=== PATIENT | male | born 1960 | race American Indian/Alaskan Native ===

== ENCOUNTER 2021-08-22 14:27 | Emergency (ER) | payer MEDICARE ==
[2021-08-22 14:36] VITALS: BP 123/71
--- NOTE | 2021-08-22 14:49 | Emergency Department Report ---
- General Chief Complaint: Upper Respiratory Infection Stated Complaint: COVID LIKE SYMPTOMS Time Seen by Provider: 08/22/21 14:38 Source: patient Mode of arrival: Ambulatory Limitations: No Limitations - History of Present Illness Initial Comments: This 61-year-old male presents emergency department chief complaint of cough, congestion, generalized body aches and fever over the past 7 days. He is unsure of any sick contacts. He has been taking Tylenol for symptoms which has been helping. He denies any associated chest pain, shortness of breath, nausea,, diarrhea, lower extremity edema, weakness or any other associated symptoms. - Related Data Previous Rx's Medication Instructions Recorded Last Taken Type Azithromycin [Zithromax Z-FAIZA] 0 mg PO DAILY #1 pack 08/22/21 Unknown Rx Benzonatate [Tessalon Perles] 100 mg PO Q8HR #30 capsule 08/22/21 Unknown Rx Dexamethasone [Decadron] 6 mg PO DAILY #7 tablet 08/22/21 Unknown Rx Allergies Allergy/AdvReac Type Severity Reaction Status Date / Time Penicillins Allergy Rash Verified 08/22/21 14:36 ED Review of Systems ROS: Stated complaint: COVID LIKE SYMPTOMS Other details as noted in HPI Comment: All other systems reviewed and negative Constitutional: chills, fever Eyes: denies: eye pain, eye discharge, vision change ENT: congestion. denies: ear pain, throat pain Respiratory: denies: cough, shortness of breath, wheezing Cardiovascular: denies: chest pain, palpitations Endocrine: no symptoms reported Gastrointestinal: denies: abdominal pain, nausea, diarrhea Genitourinary: denies: urgency, dysuria Musculoskeletal: myalgia. denies: back pain, joint swelling, arthralgia Skin: denies: rash, lesions Neurological: denies: headache, weakness, paresthesias Psychiatric: denies: anxiety, depression Hematological/Lymphatic: denies: easy bleeding, easy bruising ED Past Medical Hx - Medications Home Medications: Home Medications Medication Instructions Recorded Confirmed Last Taken Type Azithromycin [Zithromax Z-FAIZA] 0 mg PO DAILY #1 pack 08/22/21 Unknown Rx Benzonatate [Tessalon Perles] 100 mg PO Q8HR #30 capsule 08/22/21 Unknown Rx Dexamethasone [Decadron] 6 mg PO DAILY #7 tablet 08/22/21 Unknown Rx ED Physical Exam - General Limitations: No Limitations General appearance: alert, in no apparent distress - Head Head exam: Present: atraumatic, normocephalic - Eye Eye exam: Present: normal appearance, PERRL, EOMI Pupils: Present: normal accommodation - ENT ENT exam: Present: normal exam, mucous membranes moist - Neck Neck exam: Present: normal inspection, full ROM. Absent: tenderness, meningismus - Respiratory Respiratory exam: Present: normal lung sounds bilaterally. Absent: respiratory distress - Cardiovascular Cardiovascular Exam: Present: regular rate, normal rhythm, normal heart sounds. Absent: systolic murmur, diastolic murmur, rubs, gallop - GI/Abdominal GI/Abdominal exam: Present: soft, normal bowel sounds - Rectal Rectal exam: Present: deferred - Extremities Exam Extremities exam: Present: normal inspection, full ROM, normal capillary refill. Absent: tenderness, calf tenderness (No posterior calf tenderness, negative Homans' sign bilaterally.) - Back Exam Back exam: Present: normal inspection, full ROM. Absent: tenderness, CVA tenderness (R), CVA tenderness (L) - Neurological Exam Neurological exam: Present: alert, oriented X3, normal gait - Psychiatric Psychiatric exam: Present: normal affect, normal mood - Skin Skin exam: Present: warm, dry, intact, normal color. Absent: rash ED Course Vital Signs 08/22/21 08/22/21 08/22/21 14:33 16:20 16:21 Temperature 100.2 F H Pulse Rate 93 H 80 Respiratory 20 20 Rate Blood Pressure 123/71 [Left] O2 Sat by Pulse 93 86 98 Oximetry - Reevaluation(s) Reevaluation #1: 08/22/21 16:11 The patient's initial O2 saturation was 93% on room air. Asked the RN to ambulate the patient with pulse oximetry and he dropped into the mid 80s. I discussed this with the patient and informed him that this was meeting criteria for inpatient admission for what I suspect is COVID-19 and the patient stated he did not want to stay in the hospital. I educated him that this could be potentially fatal or cause endorgan damage such as a hypoxic renal injury which could result in dialysis, or other permanent disability. He verbalized understanding and stated he would prefer to go home. He did agree to undergo chest x-ray and lab work which I will reevaluate with him with the results Reevaluation #2: 08/22/21 16:40 On reevaluation the patient is requiring 3 L of oxygen via nasal cannula. He is competent speaking complete sentences. He does not any increased work of breathing. I discussed with the patient at length at the bedside our recommendation to admit him to the hospital due to his acute respiratory failure with hypoxia however the patient politely declined saying he has a phobia of hospitals and would rather be treated at home. I told him that he would have to sign out AGAINST MEDICAL ADVICE. He is competent. He is alert and oriented x3. He has decision-making capacity and understands that if his symptoms worsen he may have a permanent irreversible condition that could be potentially fatal. He understood that at any point if he decided he wanted to return to the hospital he could return and we will be more than happy to see and treat him. At this time I will sign the patient out AGAINST MEDICAL ADVICE however I will still send him home with short course of antibiotics, steroids and cough medicine to hopefully have the best outcome for him. Patient verbalized underst anding of the need for admission. 08/22/21 16:41 ED Medical Decision Making - Lab Data Result diagrams: 08/22/21 15:59 08/22/21 15:59 Lab Results 08/22/21 08/22/21 Range/Units 15:59 15:59 WBC 8.0 (4.5-11.0) K/mm3 RBC 5.18 H (3.65-5.03) M/mm3 Hgb 14.8 (11.8-15.2) gm/dl Hct 45.8 H (35.5-45.6) % MCV 89 (84-94) fl MCH 29 (28-32) pg MCHC 32 (32-34) % RDW 13.8 (13.2-15.2) % Plt Count 197 (140-440) K/mm3 Lymph % (Auto) 16.8 (13.4-35.0) % [place] % (Auto) 12.5 H (0.0-7.3) % Eos % (Auto) 0.2 (0.0-4.3) % Baso % (Auto) 0.4 (0.0-1.8) % Lymph # (Auto) 1.4 (1.2-5.4) K/mm3 [place] # (Auto) 1.0 H (0.0-0.8) K/mm3 Eos # (Auto) 0.0 (0.0-0.4) K/mm3 Baso # (Auto) 0.0 (0.0-0.1) K/mm3 Seg Neutrophils % 70.1 H (40.0-70.0) % Seg Neutrophils # 5.6 (1.8-7.7) K/mm3 Sodium 135 L (137-145) mmol/L Potassium 4.7 (3.6-5.0) mmol/L Chloride 93.9 L (98-107) mmol/L Carbon Dioxide 26 (22-30) mmol/L Anion Gap 20 mmol/L BUN 17 (9-20) mg/dL Creatinine 1.2 (0.8-1.3) mg/dL Estimated GFR > 60 ml/min BUN/Creatinine Ratio 14 % Glucose 116 H (75-100) mg/dL Calcium 9.4 (8.4-10.2) mg/dL Total Bilirubin 0.50 (0.1-1.2) mg/dL AST 30 (5-40) units/L ALT 27 (7-56) units/L Alkaline Phosphatase 63 (35-129) units/L Lactate Dehydrogenase 292 H (91-180) units/L C-Reactive Protein 6.00 H (0.00-1.30) mg/dL Total Protein 7.8 (6.3-8.2) g/dL Albumin 3.8 L (3.9-5) g/dL Albumin/Globulin Ratio 1.0 % - Radiology Data Radiology results: report reviewed, image reviewed Ordering Physician: ELMA HILL Date of Service: 08/22/21 Procedure(s): XR chest routine 2V Accession Number(s): [id number] cc: ELMA HILL Fluoro Time In Minutes: XR chest routine 2V INDICATION / CLINICAL INFORMATION: suspected covid, hypoxia COMPARISON: None available. FINDINGS: SUPPORT DEVICES: None. HEART / MEDIASTINUM: No significant abnormality. LUNGS / PLEURA: Lungs are clear. Costophrenic sulci are sharp. No pneum othorax. ADDITIONAL FINDINGS: No significant additional findings. IMPRESSION: 1. No definite airspace disease. Signer Name: Dong Benson MD Signed: 08/22/2021 3:38 PM Workstation Name: [id number] Transcribed By: HUYEN Dictated By: Dong Benson MD Electronically Authenticated By: Dong Benson MD Signed Date/Time: 08/22/21 7168 - Medical Decision Making Patient is nontoxic but acutely hypoxic requiring 3 L of home oxygen. He understood we wanted him in the hospital but he politely declined and stated he wanted to go home. Him with medications even though he is leaving AGAINST MEDICAL ADVICE. He understood the risk of leaving and is competent. - Differential Diagnosis COVID-19, pneumonia, PE Critical Care Time: Yes Critical care time in (mins) excluding proc time.: 35 Critical care attestation.: If time is entered above; I have spent that time in minutes in the direct care of this critically ill patient, excluding procedure time. Critical Care Time: 35 ED Disposition Clinical Impression: Suspected COVID-19 virus infection, Acute respiratory failure with hypoxia, Acute viral syndrome Disposition: 07 LEFT AGAINST MEDICAL ADVICE Is pt being admited?: No Condition: Stable Prescriptions: Dexamethasone [Decadron] 6 mg PO DAILY #7 tablet Benzonatate [Tessalon Perles] 100 mg PO Q8HR #30 capsule Azithromycin [Zithromax Z-FAIZA] 0 mg PO DAILY #1 pack Referrals: MOHINDER LOPEZ MD [Primary Care Provider] - 3-5 Days Time of Disposition: 16:49
[2021-08-22] MEDS ORDERED: dexAMETHasone 20 MG/5 ML VIAL IV ONE (15:16)
--- NOTE | 2021-08-22 15:43 | XRay Report ---
XR chest routine 2V INDICATION / CLINICAL INFORMATION: suspected covid, hypoxia COMPARISON: None available. FINDINGS: SUPPORT DEVICES: None. HEART / MEDIASTINUM: No significant abnormality. LUNGS / PLEURA: Lungs are clear. Costophrenic sulci are sharp. No pneumothorax. ADDITIONAL FINDINGS: No significant additional findings. IMPRESSION: 1. No definite airspace disease. Signer Name: Dong Benson MD Signed: 08/22/2021 3:38 PM Workstation Name: [id number]
[2021-08-22] MEDS ORDERED: dexAMETHasone 20 MG/5 ML VIAL IM ONE (15:45)
[2021-08-22 16:15] LABS: Basophils % (Auto) 0.4 % (0.0-1.8); Eosinophils % (Auto) 0.2 % (0.0-4.3); Hematocrit 45.8 % (35.5-45.6); Hemoglobin 14.8 gm/dl (11.8-15.2); Lymphocytes # (Auto) 1.4 K/mm3 (1.2-5.4); Lymphocytes % (Auto) 16.8 % (13.4-35.0); Mean Corpuscular HGB Conc 32 % (32-34); Mean Corpuscular Volume 89 fl (84-94); Monocytes % (Auto) 12.5 % (0.0-7.3); Platelet Count 197 K/mm3 (140-440); Red Blood Count 5.18 M/mm3 (3.65-5.03); Red Cell Distribution Width 13.8 % (13.2-15.2)
[2021-08-22 16:34] LABS: Alanine Aminotransferase 27 units/L (7-56); Albumin 3.8 g/dL (3.9-5); BUN/Creatinine Ratio 14; Blood Urea Nitrogen 17 mg/dL (9-20); Calcium 9.4 mg/dL (8.4-10.2); Hemolysis Index 44
== END 2021-08-22 17:30 | disposition left against medical advice (07) ==
LOC: ED 14:27
DX: J96.01 Acute respiratory failure with hypoxia (principal); Z20.822 Contact with and (suspected) exposure to COVID-19; B34.9 Viral infection, unspecified
CPT/HCPCS: 36415; 71046; 80053; 83615; 85025; 86140; 96372; 99291; J1100; 99283

== ENCOUNTER 2021-08-23 03:38 | Emergency (ER) | payer MEDICARE ==
[2021-08-23 03:43] VITALS: BP 169/91
--- NOTE | 2021-08-23 10:40 | Emergency Department Report ---
Minor Respiratory - HPI Chief Complaint: Upper Respiratory Infection Stated Complaint: COUGH Time Seen by Provider: 08/23/21 10:13 Minor Respiratory: Yes Able to Tolerate Fluids, Yes Cough, No Rhinorrhea, No Sore Throat, No Ear Pain, No Sick Contacts, No Hemoptysis, No Chest Pain, No Shortness of Breath, No Fever Other History: 61-year-old -[place] male with history of hypertension diabetes hypercholesterolemia presents to the emergency room for coughing. Patient states that he had a fever yesterday of 101. Patient is unvaccinated. Patient was seen here yesterday and left AMA. Patient is also on a CPAP machine. His main complaint is still cough. He states that yesterday they wanted to admit him and he signed AMA. Patient sats today is between 93 and 97% on room air. Patient maintain his stats at 92 amatory. Patient is in no acute distress and nontoxic in appearance. ED Review of Systems ROS: Stated complaint: COUGH Other details as noted in HPI ED Past Medical Hx - Past Medical History Previous Medical History?: Yes Hx Hypertension: Yes Hx Diabetes: Yes - Surgical History Past Surgical History?: No - Medications Home Medications: Home Medications Medication Instructions Recorded Confirmed Last Taken Type Azithromycin [Zithromax Z-FAIZA] 0 mg PO DAILY #1 pack 08/22/21 Unknown Rx Benzonatate [Tessalon Perles] 100 mg PO Q8HR #30 capsule 08/22/21 Unknown Rx Dexamethasone [Decadron] 6 mg PO DAILY #7 tablet 08/22/21 Unknown Rx Minor Respiratory Exam - Exam General: Vital signs noted. No distress. Alert and acting appropriately. HEENT: Yes Moist Mucous Membranes, No Pharyngeal Erythema, No Pharyngeal Exudates, No Rhinorrhea, No Conjuctival Injection, No Frontal Tenderness, No Maxillary Tenderness Ear: Neither TM Bulge, Neither TM Erythema, Neither EAC Pain, Neither EAC Discharge Neck: Yes Supple, No Adenopathy Lungs: Yes Good Air Exchange, Yes Cough, No Wheezes, No Ronchi, No Stridor, No Labored Respirations, No Retractions, No Use of Accessory Muscles, No Other Abnormal Lung Sounds Heart: Yes Regular, No Murmur Abdomen: Yes Normal Bowel Sounds, No Tenderness, No Peritoneal Signs Skin: No Rash, No Edema Neurologic: Alert and oriented, no deficits. Musculoskeletal: Unremarkable. ED Course Vital Signs 08/23/21 08/23/21 03:41 10:36 Temperature 97.8 F Pulse Rate 110 H 102 H Respiratory 18 20 Rate Blood Pressure 169/91 O2 Sat by Pulse 94 93 Oximetry ED Medical Decision Making - Radiology Data Radiology results: report reviewed [facility] [address] [place] [address] XRay Report Signed Patient: SHANTI MARTINEZ MR#: [id number] 7 : 1960 Acct:[id number] Age/Sex: 61 / M ADM Date: 08/22/21 Loc: ED Attending Dr: Ordering Physician: ELMA HILL Date of Service: 08/22/21 Procedure(s): XR chest routine 2V Accession Number(s): [id number] cc: ELMA HILL Fluoro Time In Minutes: XR chest routine 2V INDICATION / CLINICAL INFORMATION: suspected covid, hypoxia COMPARISON: None available. FINDINGS: SUPPORT DEVICES: None. HEART / MEDIASTINUM: No significant abnormality. LUNGS / PLEURA: Lungs are clear. Costophrenic sulci are sharp. No pneumothorax. ADDITIONAL FINDINGS: No significant additional findings. IMPRESSION: 1. No definite airspace disease. Signer Name: Dong Benson MD Signed: 08/22/2021 3:38 PM Workstation Name: [id number] Transcribed By: CS Dictated By: Dong Benson MD Electronically Authenticated By: Dong Benson MD Signed Date/Time: 08/22/211537 DD/ 37 TD/TT: - Medical Decision Making 61-year-old -[place] male with history of hypertension diabetes hypercholesterolemia presents to the emergency room for coughing. Patient states that he had a fever yesterday of 101. Patient is unvaccinated. Patient was seen here yesterday and left AMA. Patient is also on a CPAP machine. His main complaint is still cough. He states that yesterday they wanted to admit him and he signed AMA. Patient sats today is between 93 and 97% on room air. Patient maintain his stats at 92 amatory. Patient is in no acute distress and nontoxic in appearance. Chest x-ray done yesterday shows no acute air space disease. Labs were done patient is not anemic his H&H is stable WBCs within normal limits. Patient will be discharged home with Covid precautions. Patient notes to get tested for Covid. Increase his fluid intake complete his steroid pack. Patient is instructed that his blood sugars may elevate while being on steroids. Patient be also discharged on an inhaler. Critical care attestation.: If time is entered above; I have spent that time in minutes in the direct care of this critically ill patient, excluding procedure time. ED Disposition Clinical Impression: Suspected COVID-19 virus infection, Acute viral syndrome Disposition: HOME / SELF CARE / HOMELESS Is pt being admited?: No Does the pt Need Aspirin: No Condition: Stable Additional Instructions: Your symptoms appear most consistent with a nonspecific viral syndrome. However, given this current pandemic, COVID-19 is in the differential of possibilities. I do recommend outpatient Covid 19 testing. In the meantime, isolate/quarantine yourself and stay away from anyone who is elderly, immunocompromised or chronically ill. You can use ibuprofen every 6-8 hours and Tylenol every 4-8 hours, using the dosing on the back of the bottle, as needed for any fever or body aches. Return to the emergency department with any worsening of your symptoms, development of chest pain or shortness of breath, or with any acute distress. Referrals: PRIMARY CARE, [Primary Care Provider] - 3-5 Days Forms: Work/School Release Form(ED) Time of Disposition: 10:45
== END 2021-08-23 10:58 | disposition home or self-care (01) ==
LOC: ED 03:38
DX: Z20.822 Contact with and (suspected) exposure to COVID-19 (principal); B34.9 Viral infection, unspecified; I10 Essential (primary) hypertension; E11.9 Type 2 diabetes mellitus without complications
CPT/HCPCS: 99282